=== PATIENT | male | born 1990 | race Two or more races ===

== ENCOUNTER 2018-02-07 15:55 | Inpatient (IN) | payer SELFPAY ==
[~2018-02-07] VITALS: Ht 172.7 cm; Wt 95.3 kg
[2018-02-07] VITALS (7 sets, daily range): BP systolic 123–143; BP diastolic 74–104
[2018-02-07 17:05] LABS: APPEARANCE,URINE CLEAR; BILIRUBIN, URINE NEGATIVE (NEGATIVE); COLOR,URINE PALE YELLOW; GLUCOSE, URINE (UA) 4+ (NEGATIVE); KETONES,URINE 3+ (NEGATIVE); LEUKOCYTE ESTERASE ,URINE NEGATIVE (NEGATIVE); NITRITE,URINE NEGATIVE (NEGATIVE); PH,URINE 5 (4.5-8.0); PROTEIN,URINE 1+ (NEGATIVE); UROBILINOGEN,URINE NORMAL MG/DL (0.0-1.0)
[2018-02-07 17:09] LABS: ANION GAP 30 mmol/L (5-15); BLOOD UREA NITROGEN 34 mg/dL (7-18); CALCIUM 10.7 MG/DL (8.5-10.1); CARBON DIOXIDE 13 MMOL/L (21-32); CHLORIDE 93 MMOL/L (98-107); CREATININE 2.1 MG/DL (0.55-1.30); POTASSIUM 5.2 MMOL/L (3.5-5.1); SODIUM 136 MMOL/L (136-145)
[2018-02-07 17:11] LABS: HEMATOCRIT 50.3 % (42.0-52.0); HEMOGLOBIN 17.5 G/DL (14.2-18.0); MEAN CORPUSCULAR VOLUME 95 FL (80-99); PLATELET COUNT 223 K/UL (150-450); RED CELL DISTRIBUTION WIDTH 11.4 % (11.6-14.8); WHITE BLOOD COUNT 11.4 K/UL (4.8-10.8)
[2018-02-07 17:17] LABS: ALANINE AMINOTRANSFERASE 263 U/L (12-78); ALBUMIN 4.4 G/DL (3.4-5.0); ALKALINE PHOSPHATASE 131 U/L (46-116); ASPARTATE AMINO TRANSFERASE 114 U/L (15-37); CREATINE KINASE 37 U/L (26-308)
--- NOTE | 2018-02-07 17:29 | Emergency Room Report ---
History of Present Illness General Chief Complaint: Abnormal Labs Source: Patient, EMS Present Illness HPI 27-year-old male presents ED for evaluation. Patient brought from urgent care for weakness, nausea and vomiting and critically high blood sugar. Patient states he's been feeling dry and weak with increased urination for the last 3 days. Denies history of diabetes. Admits to alcohol and drug use over the weekend. Denies chest pain or shortness of breath. Denies any abdominal pain. No other aggravating relieving factors. Denies any other associated symptoms Allergies: Coded Allergies: No Known Allergies (Unverified , 02/07/18) Patient History Past Medical History: HTN Past Surgical History: none Pertinent Family History: none Social History: Reports: alcohol use, drug use; Denies: smoking Immunizations: UTD Reviewed Nursing Documentation: PMH: Agreed; PSxH: Agreed Nursing Documentation-PMH Past Medical History: No History, Except For Hx Hypertension: Yes Review of Systems All Other Systems: negative except mentioned in HPI Physical Exam Vital Signs Date Time Temp Pulse Resp B/P (MAP) Pulse Ox O2 Delivery O2 Flow Rate FiO2 02/07/18 15:55 98.3 123 16 108/62 100 Room Air 98.2 Sp02 EP Interpretation: reviewed, normal General Appearance: alert, GCS 15, non-toxic, mild distress Head: normocephalic, atraumatic Eyes: bilateral eye normal inspection, bilateral eye PERRL ENT: hearing grossly normal, normal pharynx, no angioedema, normal voice Neck: full range of motion, supple/symm/no masses Respiratory: chest non-tender, lungs clear, normal breath sounds, speaking full sentences Cardiovascular #1: no edema, tachycardia Cardiovascular #2: 2+ carotid (R), 2+ carotid (L), 2+ radial (R), 2+ radial (L) , 2+ dorsalis pedis (R), 2+ dorsalis pedis (L) Gastrointestinal: normal bowel sounds, non tender, soft, non-distended, no guarding, no rebound Rectal: deferred Genitourinary: normal inspection, no CVA tenderness Musculoskeletal: back normal, gait/station normal, normal range of motion, non- tender Neurologic: alert, oriented x3, responsive, motor strength/tone normal, sensory intact, speech normal Psychiatric: judgement/insight normal, memory normal, mood/affect normal, no suicidal/homicidal ideation Reflexes: 3+ bicep (R), 3+ bicep (L), 3+ tricep (R), 3+ tricep (L), 3+ knee (R) , 3+ knee (L) Skin: normal color, no rash, warm/dry, well hydrated Lymphatic: no adenopathy Procedures Critical Care Time Critical Care Time i. I feel this is a highly complex case requiring extensive working including EKG/Rhythm strip, Xray/CT/US, Blood/urine lab work, repeat exams while in ED, and administration of strong opiates/narcotics for pain control, admission to hospital or close patient follow up. Total time: 30 min bedside evaluation and treatment excludes procedures (EKG). Reason for critical care: DKA Possible complications: hypotension, hypertension, WA, shock, arrhythmias, metabolic acidosis, end organ damage, respiratory failure. Interventions: labs, ivfs, ekg, ABG, insulin bolus, insulin drip Course: Patient presenting with nausea and weakness. Accu-Chek critically high. No prior history of diabetes. Glucose greater than 1200. Positive ketones. Bicarbonate low. ABG showing some compensation. BUN/Cr elevated. Continued IV fluids. insulin bolus given. insulin drip started. endocrinology consulted Consultations: nursing staff, EMS, family Performed by: Dr Salgado Tolerated well condition = critical j. because of unstable vital signs this patient had a condition that could potentially threaten life or limb. I feel this is a critical patient who required my full attention while patient was considered critical. Total Critical Care Time excluding procedures was greater than 35 minutes Medical Decision Making Diagnostic Impression: Primary Impression: DKA (diabetic ketoacidoses) Qualified Codes: E13.10 - Other specified diabetes mellitus with ketoacidosis without coma Additional Impression: Renal insufficiency ER Course Hospital Course 27 yo M presents to ED with weakness, nausea, acchucheck critically high Differential diagnoses include: ETOH/drug ingestion, sepsis, DKA Clinical course Patient placed on stretcher. On electronic device monitor. After initial history and physical I ordered labs, 2 L of IV fluids Labs-glucose greater than 1200, anion gap elevated, bicarbonate LOW, BUN/ creatinine elevated. ABG shows some compensation but low bicarbonate EKG - sinus tachycardia, no acute ischemic changes interpreted by me Given 2 L of IV fluids, IV hydration continued. Insulin bolus given. insulin drip started Case discussed with Dr. Turcios and he agreed to accept the patient to his service for further care and support i. I feel this is a highly complex case requiring extensive working including EKG/Rhythm strip, Xray/CT/US, Blood/urine lab work, repeat exams while in ED, and administration of strong opiates/narcotics for pain control, admission to hospital or close patient follow up. j. because of unstable vital signs this patient had a condition that could potentially threaten life or limb. I feel this is a critical patient who required my full attention while patient was considered critical. Total Critical Care Time excluding procedures was greater than 35 minutes diagnosis - DKA, renal insufficiency admitted to ICU in critical condition Labs Test 02/07/18 16:22 White Blood Count 11.4 K/UL (4.8-10.8) Red Blood Count 5.30 M/UL (4.70-6.10) Hemoglobin 17.5 G/DL (14.2-18.0) Hematocrit 50.3 % (42.0-52.0) Mean Corpuscular Volume 95 FL (80-99) Mean Corpuscular Hemoglobin 33.0 PG (27.0-31.0) Mean Corpuscular Hemoglobin Concent 34.8 G/DL (32.0-36.0) Red Cell Distribution Width 11.4 % (11.6-14.8) Platelet Count 223 K/UL (150-450) Mean Platelet Volume 12.2 FL (6.5-10.1) Neutrophils (%) (Auto) % (45.0-75.0) Lymphocytes (%) (Auto) % (20.0-45.0) Monocytes (%) (Auto) % (1.0-10.0) Eosinophils (%) (Auto) % (0.0-3.0) Basophils (%) (Auto) % (0.0-2.0) Urine Color Pale yellow Urine Appearance Clear Urine pH 5 (4.5-8.0) Urine Specific [place] 1.010 (1.005-1.035) Urine Protein 1+ (NEGATIVE) Urine Glucose (UA) 4+ (NEGATIVE) Urine Ketones 3+ (NEGATIVE) Urine Blood Negative (NEGATIVE) Urine Nitrite Negative (NEGATIVE) Urine Bilirubin Negative (NEGATIVE) Urine Urobilinogen Normal MG/DL (0.0-1.0) Urine Leukocyte Esterase Negative (NEGATIVE) Urine RBC 0-2 /HPF (0 - 0) Urine WBC 0-2 /HPF (0 - 0) Urine Squamous Epithelial Cells None /LPF (NONE/OCC) Urine Bacteria Few /HPF (NONE) Sodium Level 136 MMOL/L (136-145) Potassium Level 5.2 MMOL/L (3.5-5.1) Chloride Level 93 MMOL/L (98-107) Carbon Dioxide Level 13 MMOL/L (21-32) Anion Gap 30 mmol/L (5-15) Blood Urea Nitrogen 34 mg/dL (7-18) Creatinine 2.1 MG/DL (0.55-1.30) Estimat Glomerular Filtration Rate 37.5 mL/min (>60) Glucose Level 1243 MG/DL (74-106) Calcium Level 10.7 MG/DL (8.5-10.1) Magnesium Level 3.4 MG/DL (1.8-2.4) Total Bilirubin 1.0 MG/DL (0.2-1.0) Aspartate Amino Transf (AST/SGOT) 114 U/L (15-37) Alanine Aminotransferase (ALT/SGPT) 263 U/L (12-78) Alkaline Phosphatase 131 U/L (46-116) Total Creatine Kinase 37 U/L (26-308) Troponin I 0.000 ng/mL (0.000-0.056) Total Protein 8.9 G/DL (6.4-8.2) Albumin 4.4 G/DL (3.4-5.0) Globulin 4.5 g/dL Albumin/Globulin Ratio 1.0 (1.0-2.7) Urine Opiates Screen Negative (NEGATIVE) Urine Barbiturates Screen Negative (NEGATIVE) Phencyclidine (PCP) Screen Negative (NEGATIVE) Urine Amphetamines Screen Negative (NEGATIVE) Urine Benzodiazepines Screen Negative (NEGATIVE) Urine Cocaine Screen Negative (NEGATIVE) Urine Marijuana (THC) Screen Negative (NEGATIVE) Acetone Level Positive-small (NEGATIVE) EKG Diagnostic Results Rate: tachycardiac Rhythm: NSR ST Segments: no acute changes ASA given to the pt in ED: No Rhythm Strip Diag. Results EP Interpretation: yes Rhythm: NSR, no PVC's, no ectopy Last Vital Signs Date Time Temp Pulse Resp B/P (MAP) Pulse Ox O2 Delivery O2 Flow Rate FiO2 02/07/18 16:52 98.2 117 16 135/104 100 Room Air 98.2 Status: improved Disposition: ADMITTED INPATIENT Condition: Critical Scripts No Active Prescriptions or Reported Meds Referrals: NOT CHOSEN IPA/,REFERRING (PCP) Jagdish Salgado MD Feb 07, 2018 17:29
[2018-02-07] MEDS ORDERED: Insulin Human Regular 100units/ml 3ml IV ONE (18:15)
[2018-02-07] MEDS ORDERED: Insulin Human Regular 100units/ml 3ml ONE (18:33)
[2018-02-07] MEDS: Insulin Human Regular 100units/ml 3ml IV PRN ×3 (22:02→23:57)
[2018-02-08] VITALS (24 sets, daily range): BP systolic 102–161; BP diastolic 49–121
[2018-02-08] MEDS: HYDROmorphone 1mg/ml Carpuject IVP PRN ×2 (00:10→07:46)
[2018-02-08] MEDS: Insulin Human Regular 100units/ml 3ml IV PRN ×7 (00:56→16:12)
[2018-02-08 06:33] LABS: HEMATOCRIT 53.7 % (42.0-52.0); MEAN CORPUSCULAR VOLUME 92 FL (80-99); PLATELET COUNT 191 K/UL (150-450); RED BLOOD COUNT 5.83 M/UL (4.70-6.10); RED CELL DISTRIBUTION WIDTH 11.3 % (11.6-14.8); WHITE BLOOD COUNT 11.2 K/UL (4.8-10.8)
[2018-02-08 06:40] LABS: ALANINE AMINOTRANSFERASE 236 U/L (12-78); ALKALINE PHOSPHATASE 96 U/L (46-116); ASPARTATE AMINO TRANSFERASE 83 U/L (15-37); BILIRUBIN,DIRECT 0.2 MG/DL (0.0-0.3); BILIRUBIN,TOTAL 0.7 MG/DL (0.2-1.0); PHOSPHORUS 2.3 MG/DL (2.5-4.9)
[2018-02-08 06:46] LABS: ANION GAP 12 mmol/L (5-15); BLOOD UREA NITROGEN 32 mg/dL (7-18); CALCIUM 10.2 MG/DL (8.5-10.1); CARBON DIOXIDE 28 MMOL/L (21-32); CHLORIDE 119 MMOL/L (98-107); CHOLESTEROL 218 MG/DL (< 200); CREATININE 1.9 MG/DL (0.55-1.30); HDL CHOLESTEROL 37 MG/DL (40-60); POTASSIUM 3.3 MMOL/L (3.5-5.1); SODIUM 159 MMOL/L (136-145); TRIGLYCERIDES 235 MG/DL (30-150)
[2018-02-08 06:51] LABS: HEMOGLOBIN 18.5 G/DL (14.2-18.0)
--- NOTE | 2018-02-08 08:15 | Consultation ---
DATE OF CONSULTATION: 02/07/2018 CARDIOLOGY CONSULTATION CONSULTING PHYSICIAN: Dominik Hardy M.D. REQUESTING PHYSICIAN: Vahe Turcios M.D. REASON FOR CONSULTATION: Hypertension out of control in the setting of DKA. HISTORY OF PRESENT ILLNESS: This is a 27-year-old male with history of untreated diabetes mellitus. The patient also was out of town last week and then admits to excessive oral intake as well as substance abuse. He felt increasingly weak coming to the emergency room and was found to have elevated blood pressure readings and severely abnormal chemistry panel. PAST MEDICAL HISTORY: Otherwise unremarkable. ALLERGIES: None known. FAMILY HISTORY: Notable for diabetes in several first-degree relatives. SOCIAL HISTORY: Substance abuse as noted including cocaine. Denies smoking or alcohol use. REVIEW OF SYSTEMS: Otherwise unremarkable. PHYSICAL EXAMINATION: VITAL SIGNS: Blood pressure 143/102, pulse 118, respiratory rate 20, afebrile. HEENT: Fundi poorly visualized. Conjunctivae pink. Oropharynx clear. NECK: Supple. Jugular venous pressure normal. LUNGS: Clear. CARDIAC: Regular, normal rhythm. Rapid rate. Normal S1, S2 with no murmur, rub, or gallop. ABDOMEN: Soft, nontender. EXTREMITIES: Without edema. LABORATORY AND DIAGNOSTIC DATA: EKG, sinus tachycardia, otherwise unremarkable. White count 11, hemoglobin 17.5. Glucose 1243, acetone positive. Sodium 136, potassium 5.2, bicarbonate 13, chloride 93, BUN 34, and creatinine 2.1. IMPRESSION: 1. DKA. 2. Chronic kidney disease with possible acute component. 3. Labile hypertension. 4. Mild hyperkalemia. 5. Transaminitis, rule out acute hepatobiliary process. PLAN: 1. ICU monitoring. 2. Intravenous insulin drip. 3. DVT prophylaxis. 4. Cautious titration of blood pressure and avoid orthostasis. 5. Follow up electrolytes. 6. Further recommendations will follow. Dominik Hardy M.D. DR: Heriberto JOB#: [id number] CC:
[2018-02-08] MEDS: Insulin Rate Change 1 Each MISC SCH ×5 (09:00→18:00)
--- NOTE | 2018-02-08 12:45 | Diagnostic Imaging Report ---
Indication: Abnormal renal function tests, history of hypertension Technique: Grayscale and duplex images of the kidneys, retroperitoneum, and bladder were obtained. Comparison: none Findings: Right kidney measures 10.5 cm in length. Left kidney measures 11.8 cm in length. Both kidneys demonstrate normal echogenicity. No hydronephrosis. Echogenic foci with shadowing are demonstrated bilaterally. Small cysts are seen bilaterally.. Normal inferior vena cava. Bladder demonstrates debris. Incidentally noted is diffuse increased hepatic echogenicity, consistent with hepatocellular disease, most likely fatty change Impression: Echogenic foci bilaterally, likely reflect nonobstructive stones Negative for hydronephrosis Debris within the bladder, significance/etiology uncertain Incidentally noted-liver demonstrates diffusely increased echogenicity, consistent with diffuse hepatocellular disease, most likely fatty change..
[2018-02-08] MEDS ORDERED: Lisinopril 20mg tab ORAL SCH (13:15)
--- NOTE | 2018-02-08 15:43 | Cardiology Report ---
APPROVED REPORT EKG Measurement Heart [id number] [id number] [id number] Sinus tachycardia Possible Left atrial enlargement Borderline ECG
[2018-02-08] MEDS: Potassium Phosphate 20 MEQ in 1/2 NS 1000ml 1,000 ML IV SCH ×2 (16:13→23:01)
--- NOTE | 2018-02-08 16:30 | History and Physical Report ---
DATE OF ADMISSION: 02/07/2018 HISTORY OF PRESENT ILLNESS: This is a 27-year-old male who admits to recent bingeing on illicit substances such as Adderall, ecstasy, amphetamines etc. He states that since then, he has been feeling unwell. This happened several days ago. He came to the emergency room last night with increased urination and feeling weak for the last several days. He has no history of diabetes, however, he reports family history of diabetes. He was seen and worked up in the hospital and admitted to the hospital with diagnosis of DKA as well as hypertensive urgency. PAST HISTORY: Hypertension. HOME MEDICATIONS: None. SURGERIES: None. SOCIAL HISTORY: He admits to occasional substance abuse such as amphetamine, Adderall, etc. REVIEW OF SYSTEMS: Denies any headaches, hematemesis, melena, hematochezia. PHYSICAL EXAMINATION: GENERAL: Reveals a 27-year-old male. VITAL SIGNS: Blood pressure 108/63, heart rate 104, respirations 18, afebrile. Subsequent blood pressure was noted to be 150/100. HEENT: Unremarkable. LUNGS: Clear breath sounds bilaterally. ABDOMEN: Soft. EXTREMITIES: There is no edema. NEUROLOGIC: Nonfocal. LABORATORY DATA: Lab testing shows hemoglobin 18.5, white count 11.2, platelet count is normal. ABG shows pH 7.34, pCO2 22, pO2 156. Chemistries show sodium 159, chloride 119, bicarbonate 28, anion gap of 12, creatinine 1.9, glucose is 202, albumin is 4.0. Triglyceride 235. TSH 1.0. IMPRESSION: 1. DKA. 2. Hypertension. 3. Substance abuse. DISCUSSION: Admit to the ICU. Continue IV fluids. Start clear liquid diet. SCDs. Insulin drip. We will consult Cardiology and Endocrinology. We will follow carefully. Vahe Turcios M.D. DR: Jeff JOB#: [id number] CC: ZOYA
[2018-02-08] MEDS: Lisinopril 20mg tab ORAL SCH (21:53)
[2018-02-09] VITALS (20 sets, daily range): BP systolic 113–143; BP diastolic 69–99
[2018-02-09] MEDS: HYDROmorphone 1mg/ml Carpuject IVP PRN (03:25)
[2018-02-09 05:14] LABS: HEMATOCRIT 33.1 % (42.0-52.0); HEMOGLOBIN 11.3 G/DL (14.2-18.0); MEAN CORPUSCULAR VOLUME 93 FL (80-99); PLATELET COUNT 97 K/UL (150-450); RED BLOOD COUNT 3.57 M/UL (4.70-6.10); RED CELL DISTRIBUTION WIDTH 11.4 % (11.6-14.8); WHITE BLOOD COUNT 7.9 K/UL (4.8-10.8)
--- NOTE | 2018-02-09 05:30 | Progress Note ---
DATE: 02/08/2018 CARDIOLOGY PROGRESS NOTE SUBJECTIVE: The patient's glucose level has improved. He remains on an insulin drip. He is on IV fluids. OBJECTIVE: VITAL SIGNS: Blood pressure 115/76, heart rate 108, and respiratory rate 22. LUNGS: Clear. CARDIAC: Regular rhythm. Rapid rate. Normal S1 and S2. ABDOMEN: Soft and nontender. EXTREMITIES: No edema. LABORATORY DATA: White count 11 and hemoglobin 18.5. Sodium 159, potassium 3.3, chloride 119, bicarbonate 28, BUN 32, creatinine 1.9, and glucose 202. Hemoglobin A1c 9.4. Cholesterol 218. IMPRESSION: 1. DKA. 2. Hypophosphatemia. 3. Acute on chronic kidney injury. 4. Dehydration. 5. Hypernatremia. 6. Hyperchloremia. 7. Hypokalemia. 8. Dyslipidemia. 9. Hypertension. 10. Newly diagnosed diabetes mellitus. 11. History of substance abuse. PLAN: 1. Hypotonic IV fluids. 2. Potassium and phosphorus replacement. 3. Add statin drug. 4. Add angiotensin-converting enzyme inhibitor. 5. Insulin drip titration. 6. Further recommendations to follow. 7. Repeat laboratory studies ordered. Dominik Hardy M.D. DR: ESTEFANI JOB#: [id number] CC:
[2018-02-09] MEDS: Potassium Phosphate 20 MEQ in 1/2 NS 1000ml 1,000 ML IV SCH (06:01)
[2018-02-09 06:02] LABS: ALANINE AMINOTRANSFERASE 83 U/L (12-78); ALBUMIN 1.6 G/DL (3.4-5.0); ALBUMIN/GLOBULIN RATIO 0.8 (1.0-2.7); ALKALINE PHOSPHATASE 40 U/L (46-116); ASPARTATE AMINO TRANSFERASE 47 U/L (15-37); BILIRUBIN,TOTAL 0.3 MG/DL (0.2-1.0); BLOOD UREA NITROGEN 19 mg/dL (7-18); CARBON DIOXIDE 16 MMOL/L (21-32); CHLORIDE 97 MMOL/L (98-107); CREATININE 0.6 MG/DL (0.55-1.30); SODIUM 121 MMOL/L (136-145)
--- NOTE | 2018-02-09 06:16 | General Progress Note ---
Assessment/Plan Problem List: (1) DKA (diabetic ketoacidoses) ICD Codes: E13.10 - Other specified diabetes mellitus with ketoacidosis without coma SNOMED: 331361712, [id number] Qualifiers: Qualified Codes: E13.10 - Other specified diabetes mellitus with ketoacidosis without coma (2) Renal insufficiency ICD Codes: N28.9 - Disorder of kidney and ureter, unspecified SNOMED: 075304659, [id number] Assessment/Plan DKA resolved DC insulin drip start Levemir 20 units bid start Novolog 10 units ac tid + NISS continue IVF Subjective Allergies: Uncoded Allergies: seafood (Allergy, Unknown, 02/08/18) All Systems: reviewed and negative except above Subjective events noted still in icu on insulin drip complaining of left foot pain Objective Last 24 Hour Vital Signs Date Time Temp Pulse Resp B/P (MAP) Pulse Ox O2 Delivery O2 Flow Rate FiO2 02/09/18 05:00 107 19 113/76 (88) 97 02/09/18 04:00 Room Air 02/09/18 04:00 97.0 107 19 115/74 (88) 97 97.0 02/09/18 04:00 107 02/09/18 03:55 98.4 02/09/18 03:25 98.4 02/09/18 03:00 103 19 143/95 (111) 97 02/09/18 02:00 112 19 130/95 (107) 97 02/09/18 01:00 106 20 128/93 (105) 98 02/09/18 00:00 107 02/09/18 00:00 98.4 110 22 123/78 (93) 99 98.4 02/09/18 00:00 Room Air 02/08/18 23:00 108 20 118/84 (95) 97 02/08/18 22:00 110 22 129/96 (107) 97 02/08/18 21:53 107/79 02/08/18 21:00 113 22 107/79 (88) 98 02/08/18 20:00 Room Air 02/08/18 20:00 108 02/08/18 20:00 98.4 110 22 124/79 (94) 93 98.4 02/08/18 19:00 107 22 115/80 (92) 93 02/08/18 18:00 108 22 115/76 (89) 97 02/08/18 18:00 108 28 115/76 (89) 97 02/08/18 17:00 107 27 113/76 (88) 99 02/08/18 16:00 98.1 102 21 102/78 (86) 96 98.1 02/08/18 16:00 111 02/08/18 16:00 Room Air 02/08/18 15:00 115 23 136/80 (98) 96 02/08/18 14:00 112 23 136/104 (115) 97 02/08/18 13:29 110 116/49 02/08/18 13:29 116/49 02/08/18 13:00 96.2 116 25 116/49 (71) 98 96.2 02/08/18 13:00 110 02/08/18 12:00 Room Air 02/08/18 12:00 122 25 147/116 (126) 97 02/08/18 11:00 115 25 148/113 (125) 96 02/08/18 10:00 116 26 154/121 (132) 95 02/08/18 09:00 115 23 151/111 (124) 95 02/08/18 08:34 114 02/08/18 08:00 96.6 111 24 156/111 (126) 94 96.6 02/08/18 08:00 Room Air 02/08/18 07:00 101 24 161/114 (130) 96 Intake and Output 02/08/18 02/09/18 19:00 07:00 Intake Total 2120.54 ml 1795.53 ml Output Total 420 ml 510 ml Balance 1700.54 ml 1285.53 ml Intake Oral 700 ml 425 ml IV Total 1420.54 ml 1370.53 ml Output Urine Total 420 ml 510 ml Laboratory Tests 02/09/18 04:45: White Blood Count 7.9, Red Blood Count 3.57L, Hemoglobin 11.3#L, Hematocrit 33.1 #L, Mean Corpuscular Volume 93, Mean Corpuscular Hemoglobin 31.6H, Mean Corpuscular Hemoglobin Concent 34.1, Red Cell Distribution Width 11.4L, Platelet Count 97L, Mean Platelet Volume 12.2H, Neutrophils (%) (Auto) , Lymphocytes (%) (Auto) , Monocytes (%) (Auto) , Eosinophils (%) (Auto) , Basophils (%) (Auto) , Neutrophils % (Manual) [Pending], Lymphocytes % (Manual) [Pending], Platelet Estimate [Pending], Platelet Morphology [Pending], Sodium Level [Pending], Potassium Level [Pending], Chloride Level [Pending], Carbon Dioxide Level [Pending], Blood Urea Nitrogen [Pending], Creatinine [Pending], Estimat Glomerular Filtration Rate [Pending], Glucose Level [Pending], Calcium Level [Pending], Phosphorus Level [Pending], Magnesium Level [Pending], Total Bilirubin [Pending], Aspartate Amino Transf (AST/SGOT) [Pending], Alanine Aminotransferase (ALT/SGPT) [Pending], Alkaline Phosphatase [Pending], Total Protein [Pending], Albumin [Pending], Globulin [Pending] Height (Feet): 5 Height (Inches): 8.00 Weight (Pounds): 209 General Appearance: no apparent distress Neck: normal alignment Cardiovascular: normal rate Respiratory/Chest: lungs clear Abdomen: normal bowel sounds Objective Current Medications Medications (Trade) Dose Ordered Sig/Alan Route PRN Reason Start Time Stop Time Status Last Admin Dose Admin Amlodipine Besylate (Norvasc) 5 mg DAILY ORAL 02/09/18 09:00 03/11/18 08:59 Dextrose (Dextrose 50%) 25 ml PRN PRN IV HYPOGLYCEMIA 02/07/18 21:15 03/09/18 21:14 Dextrose (Dextrose 50%) 50 ml PRN PRN IV HYPOGLYCEMIA 02/07/18 21:15 03/09/18 21:14 Hydromorphone HCl (Dilaudid) 1 mg EVERY 4 HOURS PRN IVP For Pain 02/07/18 23:45 02/14/18 23:44 02/09/18 03:25 Insulin Human Regular (NovoLIN R) 5 units PRN PRN IV BS 200-299 02/07/18 21:15 03/09/18 21:14 02/08/18 16:12 Insulin Human Regular (NovoLIN R) 10 units PRN PRN IV BS=>300 02/07/18 21:15 03/09/18 21:14 02/07/18 23:57 Insulin Human Regular 100 units/ Sodium Chloride 101 ml @ 0 mls/hr Q24H IV 02/07/18 23:00 03/09/18 22:59 02/09/18 06:00 Lisinopril (Prinivil) 20 mg Q12HR ORAL 02/08/18 21:00 03/10/18 20:59 02/08/18 21:53 Miscellaneous Medication (Insulin Rate Change) 1 ea DAILY MISC 02/09/18 09:00 03/11/18 08:59 02/08/18 18:00 Ondansetron HCl (Zofran) 4 mg Q6H PRN IVP Nausea & Vomiting 02/08/18 06:30 03/10/18 06:29 02/09/18 03:23 Potassium Phosphate 20 meq/ Sodium Chloride 1,004.5455 ml @ 150 mls/hr Q6H42M IV 02/08/18 16:30 03/10/18 16:29 02/09/18 06:01 Pravastatin Sodium (Pravachol) 40 mg BEDTIME ORAL 02/08/18 21:00 03/10/18 20:59 02/08/18 21:53 Item Value Date Time Bedside Blood Glucose 185 mg/dl H 02/09/18 0600 Bedside Blood Glucose 117 mg/dl 02/09/18 0200 Bedside Blood Glucose 190 mg/dl H 02/08/18 2200 Bedside Blood Glucose 121 mg/dl H 02/08/18 1800 Bedside Blood Glucose 250 mg/dl H 02/08/18 1415 Juan Matos MD Feb 09, 2018 06:16
[2018-02-09 06:18] LABS: CALCIUM 5.2 MG/DL (8.5-10.1)
[2018-02-09 06:21] LABS: POTASSIUM 10.8 MMOL/L (3.5-5.1)
[2018-02-09 06:22] LABS: PHOSPHORUS 21.8 MG/DL (2.5-4.9)
[2018-02-09] MEDS ORDERED: NovoLOG Insulin Flexpen SUBQ SCH ×2 (06:30)
[2018-02-09] MEDS ORDERED: Insulin Human Regular 100units/ml 3ml IV PRN ×2 (07:00)
[2018-02-09 07:15] LABS: ANION GAP 7 mmol/L (5-15); BLOOD UREA NITROGEN 27 mg/dL (7-18); CARBON DIOXIDE 27 MMOL/L (21-32); CHLORIDE 113 MMOL/L (98-107); CREATININE 1.2 MG/DL (0.55-1.30); POTASSIUM 3.2 MMOL/L (3.5-5.1); SODIUM 147 MMOL/L (136-145)
[2018-02-09 07:19] LABS: PHOSPHORUS 3.9 MG/DL (2.5-4.9)
[2018-02-09] MEDS ORDERED: Insulin Rate Change 1 Each MISC PRN (07:30)
[2018-02-09] MEDS: Lisinopril 20mg tab ORAL SCH ×2 (08:27→20:34)
--- NOTE | 2018-02-09 08:47 | Pulmonology Progress Note ---
Assessment/Plan Assessment/Plan IMPRESSION: 1. DKA. 2. Hypertension. 3. Substance abuse. DISCUSSION: Continue IV fluids. Start Diabetic diet SCDs. DC Insulin drip. Transfer to floor Levemir and Novolog Seen by endocrine Subjective Interval Events: Better Constitutional: Reports: no symptoms HEENT: Repors: no symptoms Respiratory: Reports: no symptoms Cardiovascular: Reports: no symptoms Gastrointestinal/Abdominal: Reports: no symptoms Genitourinary: Reports: no symptoms Neurologic: Reports: no symptoms Allergies: Uncoded Allergies: seafood (Allergy, Unknown, 02/08/18) Objective Last 24 Hour Vital Signs Date Time Temp Pulse Resp B/P (MAP) Pulse Ox O2 Delivery O2 Flow Rate FiO2 02/09/18 08:28 103 119/79 02/09/18 08:27 119/79 02/09/18 07:00 103 19 119/79 (92) 97 02/09/18 06:00 105 19 119/79 (92) 97 02/09/18 05:00 107 19 113/76 (88) 97 02/09/18 04:00 Room Air 02/09/18 04:00 97.0 107 19 115/74 (88) 97 97.0 02/09/18 04:00 107 02/09/18 03:55 98.4 02/09/18 03:25 98.4 02/09/18 03:00 103 19 143/95 (111) 97 02/09/18 02:00 112 19 130/95 (107) 97 02/09/18 01:00 106 20 128/93 (105) 98 02/09/18 00:00 107 02/09/18 00:00 98.4 110 22 123/78 (93) 99 98.4 02/09/18 00:00 Room Air 02/08/18 23:00 108 20 118/84 (95) 97 02/08/18 22:00 110 22 129/96 (107) 97 02/08/18 21:53 107/79 02/08/18 21:00 113 22 107/79 (88) 98 02/08/18 20:00 Room Air 02/08/18 20:00 108 02/08/18 20:00 98.4 110 22 124/79 (94) 93 98.4 02/08/18 19:00 107 22 115/80 (92) 93 02/08/18 18:00 108 22 115/76 (89) 97 02/08/18 18:00 108 28 115/76 (89) 97 02/08/18 17:00 107 27 113/76 (88) 99 02/08/18 16:00 98.1 102 21 102/78 (86) 96 98.1 02/08/18 16:00 111 02/08/18 16:00 Room Air 02/08/18 15:00 115 23 136/80 (98) 96 02/08/18 14:00 112 23 136/104 (115) 97 02/08/18 13:29 110 116/49 02/08/18 13:29 116/49 02/08/18 13:00 96.2 116 25 116/49 (71) 98 96.2 02/08/18 13:00 110 02/08/18 12:00 Room Air 02/08/18 12:00 122 25 147/116 (126) 97 02/08/18 11:00 115 25 148/113 (125) 96 02/08/18 10:00 116 26 154/121 (132) 95 02/08/18 09:00 115 23 151/111 (124) 95 Intake and Output 02/08/18 02/09/18 19:00 07:00 Intake Total 2120.54 ml 1945.53 ml Output Total 420 ml 740 ml Balance 1700.54 ml 1205.53 ml Intake Oral 700 ml 425 ml IV Total 1420.54 ml 1520.53 ml Output Urine Total 420 ml 740 ml General Appearance: no acute distress HEENT: normocephalic Respiratory/Chest: chest wall non-tender, lungs clear Cardiovascular: normal peripheral pulses, normal rate Abdomen: normal bowel sounds Laboratory Tests 02/09/18 04:45: White Blood Count 7.9, Red Blood Count 3.57L, Hemoglobin 11.3#L, Hematocrit 33.1 #L, Mean Corpuscular Volume 93, Mean Corpuscular Hemoglobin 31.6H, Mean Corpuscular Hemoglobin Concent 34.1, Red Cell Distribution Width 11.4L, Platelet Count 97L, Mean Platelet Volume 12.2H, Neutrophils (%) (Auto) , Lymphocytes (%) (Auto) , Monocytes (%) (Auto) , Eosinophils (%) (Auto) , Basophils (%) (Auto) , Neutrophils % (Manual) [Pending], Lymphocytes % (Manual) [Pending], Platelet Estimate [Pending], Platelet Morphology [Pending], Sodium Level 121#L, Potassium Level 10.8#*H, Chloride Level 97L, Carbon Dioxide Level 16L, Blood Urea Nitrogen 19H, Creatinine 0.6#, Estimat Glomerular Filtration Rate > 60, Glucose Level 119H, Calcium Level 5.2#*L, Phosphorus Level 21.8H, Magnesium Level 1.1L, Total Bilirubin 0.3, Aspartate Amino Transf (AST/SGOT) 47H , Alanine Aminotransferase (ALT/SGPT) 83H, Alkaline Phosphatase 40L, Total Protein 3.5#L, Albumin 1.6L, Globulin 1.9, Albumin/Globulin Ratio 0.8L 02/09/18 06:50: Sodium Level 147#H, Potassium Level 3.2#L, Chloride Level 113H, Carbon Dioxide Level 27, Blood Urea Nitrogen 27H, Creatinine 1.2#, Estimat Glomerular Filtration Rate > 60, Glucose Level 160H, Calcium Level 9.0#, Phosphorus Level 3.9, Anion Gap 7 Current Medications Medications (Trade) Dose Ordered Sig/Alan Route PRN Reason Start Time Stop Time Status Last Admin Dose Admin Amlodipine Besylate (Norvasc) 5 mg DAILY ORAL 02/09/18 09:00 03/11/18 08:59 02/09/18 08:28 Dextrose (Dextrose 50%) 25 ml STAT PRN IV Hypoglycemia 02/09/18 08:30 03/11/18 08:29 Dextrose (Dextrose 50%) 50 ml STAT PRN IV Hypoglycemia 02/09/18 08:30 03/11/18 08:29 Hydromorphone HCl (Dilaudid) 1 mg EVERY 4 HOURS PRN IVP For Pain 02/07/18 23:45 02/14/18 23:44 02/09/18 03:25 Insulin Aspart (NovoLOG) BEFORE MEALS AND HS SUBQ 02/09/18 11:30 03/11/18 11:29 Insulin Aspart (NovoLOG) 10 units NOVOTIAC SUBQ 02/09/18 11:50 03/11/18 11:49 Insulin Detemir (Levemir) 20 units BID SUBQ 02/09/18 09:00 03/11/18 08:59 Lisinopril (Prinivil) 20 mg Q12HR ORAL 02/08/18 21:00 03/10/18 20:59 02/09/18 08:27 Magnesium Sulfate 100 ml @ 100 mls/hr Q1H IVPB 02/09/18 08:30 02/09/18 10:29 02/09/18 08:27 Ondansetron HCl (Zofran) 4 mg Q6H PRN IVP Nausea & Vomiting 02/08/18 06:30 03/10/18 06:29 02/09/18 03:23 Pravastatin Sodium (Pravachol) 40 mg BEDTIME ORAL 02/08/18 21:00 03/10/18 20:59 02/08/18 21:53 Vahe Turcios MD Feb 09, 2018 08:47
[2018-02-09] MEDS: Lactulose 10gm/15ml UDC ORAL SCH ×3 (09:00→17:21)
[2018-02-09] MEDS ORDERED: Docusate 250mg cap ORAL SCH (09:00)
[2018-02-09] MEDS ORDERED: Levemir Flexpen SUBQ SCH (09:00)
[2018-02-09] MEDS: Levemir Flexpen SUBQ SCH ×2 (10:36→17:19)
[2018-02-09] MEDS: NovoLOG Insulin Flexpen SUBQ SCH ×5 (10:39→20:44)
--- NOTE | 2018-02-09 12:30 | Consultation ---
DATE OF CONSULTATION: 02/08/2018 ENDOCRINOLOGY CONSULTATION CONSULTING PHYSICIAN: Juan Matos M.D. REFERRING PHYSICIAN: Vahe Turcios M.D. REASON FOR CONSULTATION: Diabetic ketoacidosis. HISTORY OF PRESENT ILLNESS: The patient is a 27-year-old male with history of diabetes, who presented to the hospital with persistent nausea, vomiting, and critically high blood sugar. He was found to be in diabetic ketoacidosis. He was admitted to the ICU for IV insulin and IV fluids. Endocrinology was consulted to assist in the management of DKA. PAST MEDICAL HISTORY: Hypertension, negative history of diabetes. PAST SURGICAL HISTORY: None. FAMILY HISTORY: Noncontributory. SOCIAL HISTORY: No smoking. No drugs. Drinks alcohol. REVIEW OF SYSTEMS: As per HPI. MEDICATIONS: As an outpatient, none. LABORATORY DATA: WBC 11, hemoglobin 17, hematocrit 52, and platelets of 223,000. Sodium 136, potassium 5.2, chloride 92, bicarbonate 18, anion gap 30, BUN 34, creatinine 2.1, glucose 1242. PHYSICAL EXAMINATION: GENERAL: Awake and alert. VITAL SIGNS: Blood pressure is 142/95, pulse 103, temperature 98.4, respiratory rate 19. HEENT: Pupils are equal and reactive to light. Sclerae anicteric. NECK: No JVD. No thyromegaly. No bruit. LUNGS: Clear. HEART: Regular rate and rhythm. ABDOMEN: +BS soft EXTREMITIES: No clubbing, cyanosis, or edema. DIAGNOSES: 1. DKA. 2. New-onset diabetes, out of control. 3. Hypertension. 4. Acute kidney injury. PLAN: 1. Continue to manage DKA with insulin drip. 2. Continue IV fluid. 3. Follow the electrolytes closely and replete. 4. Once the gap is closed, we will convert to subcutaneous insulin therapy. Thank you, Dr. Turcios, for the courtesy of this consultation. Juan Matos M.D. DR: Warner JOB#: [id number] CC: OZYA
[2018-02-09] MEDS ORDERED: HYDROmorphone 1mg/ml Carpuject IVP PRN (21:00)
[2018-02-10] VITALS: BP 136/74
[2018-02-10 02:57] LABS: BILIRUBIN, URINE NEGATIVE (NEGATIVE); COLOR,URINE PALE YELLOW; GLUCOSE, URINE (UA) 4+ (NEGATIVE); KETONES,URINE 2+ (NEGATIVE); LEUKOCYTE ESTERASE ,URINE 1+ (NEGATIVE); NITRITE,URINE NEGATIVE (NEGATIVE); PH,URINE 5 (4.5-8.0); PROTEIN,URINE 2+ (NEGATIVE); UROBILINOGEN,URINE NORMAL MG/DL (0.0-1.0)
[2018-02-10 03:10] LABS: APPEARANCE,URINE CLEAR
[2018-02-10 04:02] VITALS: BP 145/94
[2018-02-10] MEDS: NovoLOG Insulin Flexpen SUBQ SCH ×4 (06:06→11:38)
[2018-02-10 06:37] LABS: BASOPHILS % (AUTO) 0.6 % (0.0-2.0); EOSINOPHILS % (AUTO) 2.2 % (0.0-3.0); HEMATOCRIT 43.6 % (42.0-52.0); LYMPHOCYTES % (AUTO) 23.7 % (20.0-45.0); MEAN CORPUSCULAR VOLUME 93 FL (80-99); MONOCYTES % (AUTO) 5.9 % (1.0-10.0); NEUTROPHILS % (AUTO) 67.7 % (45.0-75.0); PLATELET COUNT 125 K/UL (150-450); RED CELL DISTRIBUTION WIDTH 11.1 % (11.6-14.8); WHITE BLOOD COUNT 9.1 K/UL (4.8-10.8)
[2018-02-10 06:47] LABS: ANION GAP 7 mmol/L (5-15); BLOOD UREA NITROGEN 20 mg/dL (7-18); CALCIUM 9.5 MG/DL (8.5-10.1); CARBON DIOXIDE 26 MMOL/L (21-32); CHLORIDE 106 MMOL/L (98-107); POTASSIUM 3.5 MMOL/L (3.5-5.1); SODIUM 139 MMOL/L (136-145)
--- NOTE | 2018-02-10 07:04 | General Progress Note ---
Assessment/Plan Problem List: (1) DKA (diabetic ketoacidoses) ICD Codes: E13.10 - Other specified diabetes mellitus with ketoacidosis without coma SNOMED: 182531844, [id number] Qualifiers: Qualified Codes: E13.10 - Other specified diabetes mellitus with ketoacidosis without coma (2) Renal insufficiency ICD Codes: N28.9 - Disorder of kidney and ureter, unspecified SNOMED: 515399519, [id number] Assessment/Plan DKA resolved continue Levemir 20 units bid continue Novolog 10 units ac tid + NISS Subjective Allergies: Uncoded Allergies: seafood (Allergy, Unknown, 02/08/18) All Systems: reviewed and negative except above Subjective events noted transferred out of icu Objective Last 24 Hour Vital Signs Date Time Temp Pulse Resp B/P (MAP) Pulse Ox O2 Delivery O2 Flow Rate FiO2 02/10/18 04:02 99.0 115 17 145/94 (111) 96 99.0 115 115 02/10/18 00:00 98.6 110 17 136/74 (94) 99 98.6 110 110 02/09/18 21:00 Room Air 02/09/18 20:34 129/80 02/09/18 19:49 97.9 107 16 129/80 (96) 96 97.9 107 107 02/09/18 18:04 116 20 125/82 (96) 98 02/09/18 17:00 118 23 136/83 (100) 98 02/09/18 16:00 122 02/09/18 16:00 115 22 136/83 (100) 93 02/09/18 16:00 Room Air 02/09/18 15:00 114 27 128/79 (95) 93 02/09/18 14:00 109 27 132/86 (101) 95 02/09/18 13:00 101 25 132/99 (110) 97 02/09/18 12:00 Room Air 02/09/18 12:00 101 02/09/18 12:00 101 27 129/69 (89) 97 02/09/18 11:00 111 26 122/73 (89) 97 02/09/18 10:00 107 29 120/76 (91) 97 02/09/18 09:00 108 27 127/82 (97) 97 02/09/18 08:28 103 119/79 02/09/18 08:27 119/79 02/09/18 08:00 98.2 109 26 117/89 (98) 98 98.2 02/09/18 08:00 Room Air 02/09/18 08:00 108 Intake and Output 02/09/18 02/10/18 19:00 07:00 Intake Total 640 ml Output Total 1400 ml Balance -760 ml Intake Oral 440 ml IV Total 200 ml Output Urine Total 1400 ml Laboratory Tests 02/10/18 00:37: Urine Color Pale yellow, Urine Appearance Clear, Urine pH 5, Urine Specific [place] 1.015, Urine Protein 2+H, Urine Glucose (UA) 4+H, Urine Ketones 2+H, Urine Blood 1+H, Urine Nitrite Negative, Urine Bilirubin Negative, Urine Urobilinogen Normal, Urine Leukocyte Esterase 1+H, Urine RBC 2-4H, Urine WBC 2-4 , Urine Squamous Epithelial Cells Few, Urine Bacteria Few, Urine Yeast ModerateH 02/10/18 05:45: White Blood Count 9.1, Red Blood Count 4.70, Hemoglobin 15.0#, Hematocrit 43.6# , Mean Corpuscular Volume 93, Mean Corpuscular Hemoglobin 31.9H, Mean Corpuscular Hemoglobin Concent 34.4, Red Cell Distribution Width 11.1L, Platelet Count 125L, Mean Platelet Volume 13.1H, Neutrophils (%) (Auto) 67.7, Lymphocytes (%) (Auto) 23.7, Monocytes (%) (Auto) 5.9, Eosinophils (%) (Auto) 2.2, Basophils (%) (Auto) 0.6, Sodium Level 139, Potassium Level 3.5, Chloride Level 106, Carbon Dioxide Level 26, Anion Gap 7, Blood Urea Nitrogen 20H, Creatinine 1.0, Estimat Glomerular Filtration Rate > 60, Glucose Level 221H, Calcium Level 9.5 Height (Feet): 5 Height (Inches): 8.00 Weight (Pounds): 210 General Appearance: no apparent distress Neck: normal alignment Cardiovascular: normal rate Respiratory/Chest: lungs clear Abdomen: normal bowel sounds Edema: no edema noted Arm (L), no edema noted Arm (R), no edema noted Leg (L), no edema noted Leg (R), no edema noted Pedal (L), no edema noted Pedal (R), no edema noted Generalized Objective Current Medications Medications (Trade) Dose Ordered Sig/Alan Route PRN Reason Start Time Stop Time Status Last Admin Dose Admin Amlodipine Besylate (Norvasc) 5 mg DAILY ORAL 02/10/18 09:00 03/11/18 08:59 Dextrose (Dextrose 50%) 25 ml STAT PRN IV Hypoglycemia 02/10/18 08:30 03/11/18 08:29 Dextrose (Dextrose 50%) 50 ml STAT PRN IV Hypoglycemia 02/10/18 08:30 03/11/18 08:29 Docusate Sodium (Colace) 250 mg DAILY ORAL 02/10/18 09:00 03/11/18 08:59 Gabapentin (Neurontin) 200 mg THREE TIMES A DAY ORAL 02/10/18 09:00 03/11/18 08:59 Hydromorphone HCl (Dilaudid) 1 mg Q4H PRN IVP For Pain 02/09/18 21:00 02/16/18 20:59 Insulin Aspart (NovoLOG) BEFORE MEALS AND HS SUBQ 02/09/18 21:00 03/11/18 11:29 02/10/18 06:07 Insulin Aspart (NovoLOG) 10 units NOVOTIAC SUBQ 02/10/18 06:30 03/11/18 11:49 02/10/18 06:06 Insulin Detemir (Levemir) 20 units BID SUBQ 02/10/18 09:00 03/11/18 08:59 Lactulose (Cephulac) 10 gm THREE TIMES A DAY ORAL 02/10/18 09:00 03/11/18 08:59 Lisinopril (Prinivil) 20 mg Q12HR ORAL 02/09/18 21:00 03/10/18 20:59 02/09/18 20:34 Ondansetron HCl (Zofran) 4 mg Q6H PRN IVP Nausea & Vomiting 02/09/18 18:30 03/10/18 06:29 Pravastatin Sodium (Pravachol) 40 mg BEDTIME ORAL 02/09/18 21:00 03/10/18 20:59 02/09/18 20:34 Item Value Date Time Bedside Blood Glucose 197 mg/dl H 02/10/18 0607 Bedside Blood Glucose 222 mg/dl H 02/09/18 2044 Bedside Blood Glucose 265 mg/dl H 02/09/18 1719 Bedside Blood Glucose 302 mg/dl H 02/09/18 1301 Bedside Blood Glucose 294 mg/dl H 02/09/18 1039 Bedside Blood Glucose 185 mg/dl H 02/09/18 0658 Juan Matos MD Feb 10, 2018 07:04
[2018-02-10 08:19] VITALS: BP 127/93
[2018-02-10] MEDS: Lisinopril 20mg tab ORAL SCH (08:32)
[2018-02-10] MEDS: Lactulose 10gm/15ml UDC ORAL SCH ×2 (08:32→13:12)
[2018-02-10] MEDS ORDERED: Docusate 250mg cap ORAL SCH (09:00)
[2018-02-10] MEDS ORDERED: Levemir Flexpen SUBQ SCH (09:00)
--- NOTE | 2018-02-10 09:26 | Pulmonology Progress Note ---
Assessment/Plan Assessment/Plan IMPRESSION: 1. DKA. Resolved 2. Hypertension. 3. Substance abuse. DISCUSSION: Dc home on Levemir and Novolog Add empiric abx for dysuria Outpt followup Subjective Interval Events: Better; labs normalized Constitutional: Reports: no symptoms HEENT: Repors: no symptoms Respiratory: Reports: no symptoms Cardiovascular: Reports: no symptoms Gastrointestinal/Abdominal: Reports: no symptoms Allergies: Uncoded Allergies: seafood (Allergy, Unknown, 02/08/18) Objective Last 24 Hour Vital Signs Date Time Temp Pulse Resp B/P (MAP) Pulse Ox O2 Delivery O2 Flow Rate FiO2 02/10/18 08:54 Room Air 02/10/18 08:43 102 127/93 02/10/18 08:32 127/93 02/10/18 08:19 98.4 102 20 127/93 (104) 98 98.4 02/10/18 04:02 99.0 115 17 145/94 (111) 96 99.0 115 115 02/10/18 00:00 98.6 110 17 136/74 (94) 99 98.6 110 110 02/09/18 21:00 Room Air 02/09/18 20:34 129/80 02/09/18 19:49 97.9 107 16 129/80 (96) 96 97.9 107 107 02/09/18 18:04 116 20 125/82 (96) 98 02/09/18 17:00 118 23 136/83 (100) 98 02/09/18 16:00 122 02/09/18 16:00 115 22 136/83 (100) 93 02/09/18 16:00 Room Air 02/09/18 15:00 114 27 128/79 (95) 93 02/09/18 14:00 109 27 132/86 (101) 95 02/09/18 13:00 101 25 132/99 (110) 97 02/09/18 12:00 Room Air 02/09/18 12:00 101 02/09/18 12:00 101 27 129/69 (89) 97 02/09/18 11:00 111 26 122/73 (89) 97 02/09/18 10:00 107 29 120/76 (91) 97 Intake and Output 02/09/18 02/10/18 19:00 07:00 Intake Total 640 ml Output Total 1400 ml Balance -760 ml Intake Oral 440 ml IV Total 200 ml Output Urine Total 1400 ml General Appearance: no acute distress HEENT: normocephalic Respiratory/Chest: chest wall non-tender, lungs clear Cardiovascular: normal peripheral pulses, normal rate Abdomen: normal bowel sounds Microbiology Date/Time Source Procedure Growth Status 02/07/18 19:18 Rectum VRE Culture - Final NO VANCOMYCIN RESISTANT ENTEROCOCCUS ... Complete 02/07/18 19:18 Rectum - Final NO CARBAPENEM-RESISTANT ENTEROBACTERI... Complete Laboratory Tests 02/10/18 00:37: Urine Color Pale yellow, Urine Appearance Clear, Urine pH 5, Urine Specific [place] 1.015, Urine Protein 2+H, Urine Glucose (UA) 4+H, Urine Ketones 2+H, Urine Blood 1+H, Urine Nitrite Negative, Urine Bilirubin Negative, Urine Urobilinogen Normal, Urine Leukocyte Esterase 1+H, Urine RBC 2-4H, Urine WBC 2-4 , Urine Squamous Epithelial Cells Few, Urine Bacteria Few, Urine Yeast ModerateH 02/10/18 05:45: White Blood Count 9.1, Red Blood Count 4.70, Hemoglobin 15.0#, Hematocrit 43.6# , Mean Corpuscular Volume 93, Mean Corpuscular Hemoglobin 31.9H, Mean Corpuscular Hemoglobin Concent 34.4, Red Cell Distribution Width 11.1L, Platelet Count 125L, Mean Platelet Volume 13.1H, Neutrophils (%) (Auto) 67.7, Lymphocytes (%) (Auto) 23.7, Monocytes (%) (Auto) 5.9, Eosinophils (%) (Auto) 2.2, Basophils (%) (Auto) 0.6, Sodium Level 139, Potassium Level 3.5, Chloride Level 106, Carbon Dioxide Level 26, Anion Gap 7, Blood Urea Nitrogen 20H, Creatinine 1.0, Estimat Glomerular Filtration Rate > 60, Glucose Level 221H, Calcium Level 9.5 Current Medications Medications (Trade) Dose Ordered Sig/Alan Route PRN Reason Start Time Stop Time Status Last Admin Dose Admin Amlodipine Besylate (Norvasc) 5 mg DAILY ORAL 02/10/18 09:00 03/11/18 08:59 Dextrose (Dextrose 50%) 25 ml STAT PRN IV Hypoglycemia 02/10/18 08:30 03/11/18 08:29 Dextrose (Dextrose 50%) 50 ml STAT PRN IV Hypoglycemia 02/10/18 08:30 03/11/18 08:29 Docusate Sodium (Colace) 250 mg DAILY ORAL 02/10/18 09:00 03/11/18 08:59 02/10/18 08:32 Gabapentin (Neurontin) 200 mg THREE TIMES A DAY ORAL 02/10/18 09:00 03/11/18 08:59 02/10/18 08:33 Hydromorphone HCl (Dilaudid) 1 mg Q4H PRN IVP For Pain 02/09/18 21:00 02/16/18 20:59 Insulin Aspart (NovoLOG) BEFORE MEALS AND HS SUBQ 02/09/18 21:00 03/11/18 11:29 02/10/18 06:07 Insulin Aspart (NovoLOG) 10 units NOVOTIAC SUBQ 02/10/18 06:30 03/11/18 11:49 02/10/18 06:06 Insulin Detemir (Levemir) 20 units BID SUBQ 02/10/18 09:00 03/11/18 08:59 02/10/18 08:43 Lactulose (Cephulac) 10 gm THREE TIMES A DAY ORAL 02/10/18 09:00 03/11/18 08:59 02/10/18 08:32 Lisinopril (Prinivil) 20 mg Q12HR ORAL 02/09/18 21:00 03/10/18 20:59 02/10/18 08:32 Ondansetron HCl (Zofran) 4 mg Q6H PRN IVP Nausea & Vomiting 02/09/18 18:30 03/10/18 06:29 Pravastatin Sodium (Pravachol) 40 mg BEDTIME ORAL 02/09/18 21:00 03/10/18 20:59 02/09/18 20:34 Vahe Turcios MD Feb 10, 2018 09:26
[2018-02-10] MEDS ORDERED: LEVEMIR FL100 UNIT/1 SUBQ (09:29)
[2018-02-10] MEDS ORDERED: NOVOLOG100 UNITS1 SUBQ (09:29)
[2018-02-10] MEDS ORDERED: LEVAQUIN500 MG ORAL (09:29)
[2018-02-10] MEDS ORDERED: LISINOPRIL20 MG ORAL (09:29)
[2018-02-10] MEDS ORDERED: NORVASC5 MG ORAL (09:29)
[2018-02-10] MEDS ORDERED: GABAPENTIN100 MG ORAL (09:29)
[2018-02-10] MEDS ORDERED: PRAVACHOL20 MG ORAL (09:29)
[2018-02-10 11:44] VITALS: BP 152/92
--- NOTE | 2018-02-11 13:37 | Discharge Summary ---
Discharge Summary Discharge Summary _ DATE OF ADMISSION: 02/07/2018 DATE OF DISCHARGE: 02/10/2018 CONSULTANTS: Dr. Juan Hardy BRIEF HOSPITAL COURSE: Patient is a 27-year-old male, who admits to recent binging on illicit substances such as Adderall, ecstasy, amphetamines, etc. He stated that since then, he had been feeling unwell. He was brought in by EMS from urgent care for weakness, nausea and vomiting and critically high blood sugar. He denied any history of diabetes. On evaluation at ED, vital signs were stable. Blood work showed glucose level of 1,243 anion gap elevated to 30. BUN and creatinine was elevated. Urine ketone was elevated, positive acetone. ABG showed compensation but low bicarbonate. EKG with sinus tachycardia with no acute ischemic changes. He was given aggressive IV hydration. He was given insulin bolus and was started on insulin drip. He was then admitted to ICU for DKA. He was seen by roping tender. Blood glucose was monitored. He was placed on NPO and continued on insulin drip and IV fluids. He was given potassium and phosphorus replacement. He was placed on RASHAD inhibitor and statin was added. Insulin drip was titrated. Anion gap closed. Insulin drip was discontinued. He was started on Levemir 20 units BID and NovoLog 10 units before meals together with NovoLog sliding scale. He was transferred out of ICU. He complained of dysuria. Urine culture showed growth of group B strep. Kidney ultrasound with echogenic foci bilaterally, with incidental findings of hepatocellular disease, most likely fatty change. He was given diabetic education. Compliance with taking medication was stressed. He was counseled against drug use. He was cleared for discharge home to continue po Levaquin as outpatient. FINAL DIAGNOSES: Diabetic ketoacidosis, resolved Hypertension Substance abuse Acute on chronic kidney injury Dehydration Hypernatremia Hyperchloremia Hypokalemia Dyslipidemia Newly diagnosed diabetes mellitus Transaminitis DISPOSITION: Patient was discharged home. DISCHARGE MEDICATIONS: Refer to Discharge Medication List. Continue with Levaquin for 1 week. DISCHARGE INSTRUCTIONS: Follow up within a week. I have been assigned to dictate discharge summary on this account, and I was not involved in the patient's management. Estefani Hi NP Feb 11, 2018 13:37
== END 2018-02-10 14:20 | disposition home or self-care (01) | DRG 638 ==
LOC: EDBD 15:55 → EMR 16:21 → ICU 18:53 → EDBEDREQ 18:58 → 4W 02-09 18:25
DX: E11.10 Type 2 diabetes mellitus with ketoacidosis without coma (principal); N17.9 Acute kidney failure, unspecified; E87.0 Hyperosmolality and hypernatremia; F15.10 Other stimulant abuse, uncomplicated; F16.10 Hallucinogen abuse, uncomplicated; F14.10 Cocaine abuse, uncomplicated; I12.9 Hypertensive chronic kidney disease with stage 1 through stage 4 chronic kidney disease, or unspecified chronic kidney disease; N18.9 Chronic kidney disease, unspecified; R74.0 Nonspecific elevation of levels of transaminase and lactic acid dehydrogenase [LDH]; E83.39 Other disorders of phosphorus metabolism; E86.0 Dehydration; E87.8 Other disorders of electrolyte and fluid balance, not elsewhere classified; E87.6 Hypokalemia
CPT/HCPCS: 36415; 36600; 76770; 80048; 80053; 80061; 80076; 80307; 81001; 81003; 82009; 82550; 82803; 82947; 82962; 83036; 83735; 84100; 84443; 84484; 85007; 85025; 87081; 87086; 93005; 96361; 96374; 99291; J1815; J2405; S5561